=== PATIENT | female | born 1975 | race Caucasian/White ===

== ENCOUNTER 2022-12-07 18:34 | Emergency (ER) | payer MEDICAID ==
[~2022-12-07] VITALS: Ht 167.6 cm; Wt 83.9 kg
[2022-12-07 18:59] VITALS: BP_SYST 122
--- NOTE | 2022-12-07 19:09 | NUR ---
Patient to ER bed 2 to gown for evaluation. Side rails up. Report given to DEVEN WALTER.
[2022-12-07] MEDS ORDERED: NACL 0.9% 1,000 ML IV ONE (19:30)
[2022-12-07] MEDS ORDERED: PROCHLORPERAZINE EDISYLATE 10 MG/2 ML VIAL IVP ONE (19:30)
[2022-12-07] MEDS ORDERED: DEXAMETHASONE SOD PHOSPHATE 10 MG/ML VIAL IVP ONE (19:30)
[2022-12-07] MEDS ORDERED: DICYCLOMINE HCL 20 MG/2 ML AMP IM ONE (19:30)
[2022-12-07] MEDS ORDERED: MORPHINE 4 MG INJ. 4 MG/ML VIAL IVP ONE (19:30)
--- NOTE | 2022-12-07 19:30 | NUR ---
INITIAL ASSESSMENT DONE ,VSS IV START AT LT WRIST G20.
--- NOTE | 2022-12-07 19:45 | NUR ---
S/B DR Freedom GONZALES AT [facility] FOR DISPOSITION
[2022-12-07 20:00] VITALS: BP_SYST 139
--- NOTE | 2022-12-07 20:00 | NUR ---
VSS MEDICATED FOR PAIN AND STEROID SEE EMAR.
--- NOTE | 2022-12-07 20:15 | NUR ---
COLLECTED URINE SAMPLE AND SENT TO LAB
[2022-12-07 20:34] LABS: BILIRUBIN,URINE NEGATIVE (NEGATIVE); CLARITY/URINE CLEAR (CLEAR); GLUCOSE,URINE NEGATIVE (NEGATIVE); KETONES,URINE NEGATIVE (NEGATIVE); LEUKOCYTE ESTERASE ,URINE TRACE (NEGATIVE); NITRITE, URINE POSITIVE (NEGATIVE); PH,URINE 6.5 (5.0-8.0); PROTEIN URINE NEGATIVE (NEGATIVE); UROBILINOGEN,URINE 0.2 (0.2-1.0)
[2022-12-07 20:44] LABS: BASOPHILS % (AUTO) 0.6 % (0.0-2.0); EOSINOPHILS # (AUTO) 0.3 K/uL (0.0-0.4); EOSINOPHILS % (AUTO) 4.2 % (0.0-4.0); HEMATOCRIT 38.4 % (36-48); LYMPHOCYTES # (AUTO) 3.2 K/uL (1.0-5.5); LYMPHOCYTES % (AUTO) 39.7 % (20.5-51.5); MEAN CORPUSCULAR HEMOGLOBIN 33 pg (27-31); MEAN CORPUSCULAR HGB CONC 34 % (32-36); MEAN CORPUSCULAR VOLUME 96 fL (79.0-98.0); MONOCYTES # (AUTO) 0.8 K/uL (0.0-1.0); NEUTROPHILS # (AUTO) 3.7 K/uL (1.8-7.7); NEUTROPHILS % (AUTO) 45.5 % (40.0-70.0); PLATELET COUNT (AUTO) 348 K/uL (130-430); RED BLOOD CELL COUNT(AUTO) 3.99 MIL/uL (4.2-6.2); RED CELL DISTRIBUTION WIDTH 12.6 % (9.0-15.0)
[2022-12-07 20:51] LABS: BLOOD, URINE TRACE (NEGATIVE)
[2022-12-07 20:52] LABS: COLOR,URINE STRAW (YELLOW)
[2022-12-07 20:53] LABS: BACTERIA,URINE MODERATE /HPF (None Seen); MUCUS,URINE None Seen /LPF (None Seen); RBC,URINE NONE SEEN /HPF (0-3)
[2022-12-07 20:57] LABS: ALBUMIN 3.5 g/dL (3.4-4.8); CALCIUM 8.6 mg/dL (8.4-11.0); CREATININE 0.68 mg/dL (0.55-1.30); TOTAL BILIRUBIN 0.3 mg/dL (0.0-1.0)
[2022-12-07] MEDS ORDERED: ACET12.55 PO (22:29)
[2022-12-07] MEDS ORDERED: LEVO750T64 PO ×2 (22:29→22:34)
[2022-12-07] MEDS ORDERED: HYOS0.1275 PO ×2 (22:29→22:34)
[2022-12-07] MEDS ORDERED: PHE25 PO ×2 (22:29→22:35)
[2022-12-07] MEDS ORDERED: HYDR-3917 PO (22:35)
[2022-12-07] MEDS ORDERED: cefTRIAXone 2 GM VIAL ONE (22:47)
--- NOTE | 2022-12-07 22:59 | NUR ---
1799 WALK TO BATHROOM VSS, IV ABX RUNNING
--- NOTE | 2022-12-07 23:50 | NUR ---
Patient given written and verbal discharge instructions and verbalizes understanding. BRITTA LOPEZ MD discussed with patient the results and treatment provided. Patient in stable condition. ID arm band removed. IV catheter removed intact and dressing applied, no active bleeding. Rx of given. Patient educated on pain management and to follow up with PMD. Pain Scale 0 . Opportunity for questions provided and answered. Medication side effect fact sheet provided.
== END 2022-12-07 23:50 | disposition home or self-care (01) ==
LOC: SED 18:34
DX: N39.0 Urinary tract infection, site not specified (principal); K52.9 Noninfective gastroenteritis and colitis, unspecified; R10.9 Unspecified abdominal pain; R53.1 Weakness; Z79.899 Other long term (current) drug therapy
CPT/HCPCS: 99284; 96365; 96375; 96361; 80053; 81000; 83690; 85025; 87086; 36415; J0696; J1100; J0500; J0780; J2270; J7030

== ENCOUNTER 2023-01-03 14:00 | Emergency (ER) | payer MEDICAID ==
[~2023-01-03] VITALS: Ht 167.6 cm; Wt 81.6 kg
[~2023-01-03 14:00] MED LIST: ACET12.55 PO; HYDR-3917 PO; HYOS0.1275 PO; LEVO750T64 PO; PHE25 PO
[2023-01-03 14:09] VITALS: BP_SYST 124
[2023-01-03] MEDS ORDERED: HYDROcodone/ACETAMIN 10-325 MG TAB PO ONE (14:30)
[2023-01-03] MEDS ORDERED: IBUPROFEN 800 MG TABLET PO ONE (14:30)
[2023-01-03] MEDS ORDERED: predniSONE 20 MG TABLET PO ONE (14:30)
[2023-01-03] MEDS ORDERED: NACL 0.9% 1,000 ML IV ONE (15:15)
[2023-01-03 15:20] LABS: BASOPHILS % (AUTO) 0.7 % (0.0-2.0); EOSINOPHILS # (AUTO) 0.3 K/uL (0.0-0.4); EOSINOPHILS % (AUTO) 4.9 % (0.0-4.0); HEMATOCRIT 37.8 % (36-48); HEMOGLOBIN 13.1 g/dL (12.0-16.0); LYMPHOCYTES # (AUTO) 1.6 K/uL (1.0-5.5); LYMPHOCYTES % (AUTO) 30.2 % (20.5-51.5); MEAN CORPUSCULAR HEMOGLOBIN 33 pg (27-31); MEAN CORPUSCULAR HGB CONC 35 % (32-36); MEAN CORPUSCULAR VOLUME 95 fL (79.0-98.0); MONOCYTES # (AUTO) 0.6 K/uL (0.0-1.0); MONOCYTES % (AUTO) 11.7 % (1.7-9.3); NEUTROPHILS # (AUTO) 2.8 K/uL (1.8-7.7); NEUTROPHILS % (AUTO) 52.5 % (40.0-70.0); PLATELET COUNT (AUTO) 348 K/uL (130-430); RED BLOOD CELL COUNT(AUTO) 3.96 MIL/uL (4.2-6.2); RED CELL DISTRIBUTION WIDTH 12.8 % (9.0-15.0); WHITE BLOOD COUNT (AUTO) 5.3 K/uL (4.8-10.8)
[2023-01-03 15:41] LABS: ANION GAP 8 (5-15); CALCIUM 9.1 mg/dL (8.4-11.0); CHLORIDE 105 mmol/L (98-107); CREATININE 0.75 mg/dL (0.55-1.30); GFR AFRICAN AMERICAN 107 mL/min (>90); GLUCOSE 92 mg/dL (70-99); UREA NITROGEN, BLOOD 9 mg/dL (8-21)
[2023-01-03 15:45] LABS: ALANINE AMINOTRANSFERASE 36 U/L (12-78); ALBUMIN 3.7 g/dL (3.4-4.8); AMYLASE 25 U/L (0-100); ASPARTATE AMINOTRANSFERASE 21 U/L (10-37); C-REACTIVE PROTEIN QUANT 5.1 mg/dL (0-0.5); LIPASE 33 U/L (73-393); TOTAL BILIRUBIN 0.5 mg/dL (0.0-1.0)
[2023-01-03] MEDS ORDERED: MORPHINE 2 MG/ML INJ. SYRINGE IVP ONE (15:45)
[2023-01-03] MEDS ORDERED: ONDANSETRON HCL 4 MG/2 ML VIAL ONE (15:45)
[2023-01-03] MEDS ORDERED: ONDANSETRON HCL 4 MG/2 ML VIAL IVP ONE (16:00)
[2023-01-03] MEDS ORDERED: IBUP-1971 PO (16:08)
[2023-01-03] MEDS ORDERED: PRED20TA PO (16:08)
[2023-01-03 16:15] VITALS: BP_SYST 132
[2023-01-03 16:48] LABS: ACETONE, SERUM NEGATIVE (NEGATIVE)
== END 2023-01-03 16:15 | disposition home or self-care (01) ==
LOC: SED 14:00
DX: K51.90 Ulcerative colitis, unspecified, without complications (principal); Z79.899 Other long term (current) drug therapy
CPT/HCPCS: 99285; 74176; 96374; 96361; 96375; 80053; 82009; 82150; 84703; 83690; 85025; 86140; 36415; 76376; 83605; J7512; J2405; J2270; J7030

== ENCOUNTER 2023-07-05 18:41 | Emergency (ER) | payer MEDICAID ==
[~2023-07-05] VITALS: Ht 167.6 cm; Wt 77.1 kg
[~2023-07-05 18:41] MED LIST changes: +DICL50TA7 PO; +IBUP-1971 PO; +ONDA-8 TL; +PRED20TA PO
[2023-07-05 18:45] VITALS: BP_SYST 132; PULSE 86; RESP 18; TEMP 97.2; O2SAT 99
[2023-07-05] MEDS ORDERED: HYDROcodone/ACETAMIN 7.5-325 MG TAB PO ONE (19:15)
[2023-07-05] MEDS ORDERED: KETOROLAC TROMETHAMINE 60 MG/2 ML VIAL IM ONE (19:15)
[2023-07-05 19:44] LABS: BILIRUBIN,URINE NEGATIVE (NEGATIVE); BLOOD, URINE NEGATIVE (NEGATIVE); CLARITY/URINE CLEAR (CLEAR); COLOR,URINE YELLOW (YELLOW); GLUCOSE,URINE NEGATIVE (NEGATIVE); KETONES,URINE NEGATIVE (NEGATIVE); LEUKOCYTE ESTERASE ,URINE NEGATIVE (NEGATIVE); NITRITE, URINE NEGATIVE (NEGATIVE); PROTEIN URINE NEGATIVE (NEGATIVE); UROBILINOGEN,URINE 0.2 (0.2-1.0)
[2023-07-05 19:50] LABS: BASOPHILS # (AUTO) 0.1 K/uL (0.0-0.2); EOSINOPHILS # (AUTO) 0.3 K/uL (0.0-0.4); EOSINOPHILS % (AUTO) 4.6 % (0.0-4.0); HEMATOCRIT 39.7 % (36-48); HEMOGLOBIN 12.9 g/dL (12.0-16.0); LYMPHOCYTES # (AUTO) 3.3 K/uL (1.0-5.5); LYMPHOCYTES % (AUTO) 45.3 % (20.5-51.5); MEAN CORPUSCULAR HEMOGLOBIN 30 pg (27-31); MEAN CORPUSCULAR HGB CONC 33 % (32-36); MEAN CORPUSCULAR VOLUME 93 fL (79.0-98.0); MONOCYTES # (AUTO) 0.6 K/uL (0.0-1.0); MONOCYTES % (AUTO) 7.6 % (1.7-9.3); NEUTROPHILS % (AUTO) 41.5 % (40.0-70.0); PLATELET COUNT (AUTO) 333 K/uL (130-430); RED BLOOD CELL COUNT(AUTO) 4.28 MIL/uL (4.2-6.2); RED CELL DISTRIBUTION WIDTH 15.1 % (9.0-15.0); WHITE BLOOD COUNT (AUTO) 7.3 K/uL (4.8-10.8)
[2023-07-05 19:51] LABS: SERUM HCG (QUALITATIVE) NEGATIVE (NEGATIVE)
[2023-07-05 19:52] LABS: ACETONE, SERUM NEGATIVE (NEGATIVE); ANION GAP 5 (5-15); CALCIUM 9.3 mg/dL (8.4-11.0); CARBON DIOXIDE 29 mmol/L (23-29); CHLORIDE 100 mmol/L (98-107); CREATININE 0.71 mg/dL (0.55-1.30); GFR AFRICAN AMERICAN 114 mL/min (>90); GLUCOSE 134 mg/dL (74-106); POTASSIUM 3.5 mmol/L (3.5-5.1); SODIUM SERUM 134 mmol/L (136-145); UREA NITROGEN, BLOOD 9 mg/dL (8-21)
[2023-07-05 19:56] LABS: INR 1.1 (0.8-1.2); PROTHROMBIN TIME 10.9 SECS (9.5-12.5)
[2023-07-05 20:06] LABS: ALANINE AMINOTRANSFERASE 36 U/L (12-78); ALBUMIN 3.7 g/dL (3.4-4.8); AMYLASE 33 U/L (0-100); ASPARTATE AMINOTRANSFERASE 16 U/L (10-37); LIPASE 10 U/L (16-77); TOTAL BILIRUBIN 0.3 mg/dL (0.0-1.0); TOTAL PROTEIN, SERUM 7.4 g/dL (6.4-8.3)
[2023-07-05] MEDS ORDERED: IBUP-1969 PO (20:47)
[2023-07-05] MEDS ORDERED: TRAM50TA2 PO (20:47)
[2023-07-05 20:56] VITALS: BP_SYST 130; PULSE 82; RESP 18; TEMP 97.4; O2SAT 99
== END 2023-07-05 20:56 | disposition home or self-care (01) ==
LOC: SED 18:41
DX: R10.9 Unspecified abdominal pain (principal); Z79.899 Other long term (current) drug therapy
CPT/HCPCS: 99285; 74176; 80053; 81001; 82009; 82150; 84703; 83690; 85025; 85610; 85730; 36415; 76376; 81025; 96372; 87491; 83605; 81003; 82397; J1885